=== PATIENT | male | born 1965 | race Caucasian/White ===

== ENCOUNTER 2024-01-21 13:06 | Emergency (ER) | payer BC, SELFPAY ==
[2024-01-21 13:26] VITALS: BP 164/107
[2024-01-21 13:38] LABS: % Basophils 0.6 % (0-2); % Eosinophils 1.6 % (0-6); % Immature Granulocytes 0.2 % (0-0.5); % Monocytes 5.3 % (1.7-9.3); % Neutrophils 69.3 % (42.2-75.2); Absolute Eosinophils 0.1 10^3/uL (0-0.7); Absolute Lymphocytes 1.2 10^3/uL (1.2-3.4); Absolute Monocytes 0.3 10^3/uL (0.1-0.6); Absolute Neutrophils 3.6 10^3/uL (1.4-6.5); Hematocrit 39.3 % (39.0-52.0); Hemoglobin 13.7 g/dL (13.0-18.0); Mean Corp Hgb Conc. 34.9 g/dL (33.0-37.0); Mean Corpuscular Volume 94.7 fL (80.0-94.0); Mean Platelet Volume 8.7 fL (7.4-10.4); Nucleated Red Blood Cells % 0 % (-); Platelet Count 173 10^3/uL (130-400); Red Blood Cell Count 4.15 10^6/uL (4.70-6.10); Red Cell Dist. Width 11.9 % (11.5-14.5); White Blood Cell Count 5.1 10^3/uL (4.8-10.8)
[2024-01-21 13:52] LABS: ALT (SGPT) 36 U/L (0-50); AST (SGOT) 28 U/L (17-59); Albumin 4.2 g/dl (3.5-5.0); Alkaline Phosphatase 83 U/L (38-126); Blood Urea Nitrogen 15 mg/dl (9-20); Carbon Dioxide 30 mmol/L (22-30); Chloride 103 mmol/L (98-107); Glucose 116 mg/dl (70-99); Potassium 4.1 mmol/L (3.5-5.1); Sodium 135 mmol/L (135-145); Total Bilirubin 0.5 mg/dl (0.2-1.3); Total Protein 6.9 g/dl (6.3-8.2); eGFR > 60.00
[2024-01-21 14:04] LABS: Troponin I < 0.012 ng/ml
[2024-01-21 15:12] VITALS: BP 163/104
--- NOTE | 2024-01-21 15:36 | ED.GENMED ---
History of Present Illness
General
Chief Complaint: Chest Pain
Source: patient
Exam Limitations: none
Time Seen by Provider: 01/21/24 15:13
Nursing documentation reviewed up to this point in time: agreed with
Travel History
Have you had any contact with someone who has COVID-19?: No
Do you have any symptoms of coronavirus? Fever > 100 degrees, chills, cough, shortness of breath, sore throat, loss of taste or smell, muscle aches, or headache?: No
History of Present Illness
History of Present Illness:
The patient is a 58-year-old man who reports intermittent left-sided chest pain for almost a week. Patient reports he has been under a lot of stress and when the stress intensifies, the chest pain gets worse. He reports it does not seem to be
related to breathing or exertion. He reports it is nearly gone at this time. The episode of chest pain started today at around 12:30 PM and has been constant until now. Patient reports the pain radiated towards the left shoulder which made him
nervous. He denies shortness of breath, nausea and sweating. He denies leg pain and leg swelling. He denies a history of PE and DVT.
Past History
Past History
ED Past Medical History: GERD and Psychiatric (Anxiety)
ED Past Surgical History: None
Social History
Tobacco: Non-smoker
Alcohol: Occasional
Drug: None
Personal:
Living: with family
Employment: Employed
Family History
Family History: Other
Review of Systems
Review of Systems
Allergies reviewed?: Yes
All Other Systems: ROS reviewed and negative except as documented in HPI and ROS
Constitutional: Reports no symptoms
EENT: Reports no symptoms
Respiratory: Reports no symptoms
Cardiac: Reports chest pain
ABD/GI: Reports no symptoms
: Reports no symptoms
Musculoskeletal: Reports no symptoms
Skin: Reports no symptoms
Neurological: Reports no symptoms
Endocrine: Reports no symptoms
Hematologic/Lymphatic: Reports no symptoms
Psychiatric: Reports no symptoms
Phy Exam
Physical Exam
Physical Exam:
Physical Exam
General: no apparent distress, not acutely ill. Well and comfortable appearing
Neck: supple. no meningeal signs. normal psoterior pharynx
Heart: s1/s2 regular rate and rhythm, no murmur. equal radial pulses.
Lungs: no acute respiratory distress. clear bilaterally. No reproducible chest pain when taking a deep breath
Abdomen: normal bowel sounds. not tender. no CVAT. No pulsatile mass
Neuro: alert and oriented. no focal neurological deficits
Skin: no rash
Psychiatric: well kept. interactive and cooperative
Extremities: no edema. no calf tenderness. negative homans. good distal pulses
Scores
Heart Score for Chest Pain Patients
STEMI patient?: No
History: Slightly or Non-Suspicious
ECG: Nonspecific Repolarization
Age: >45 - <65 years
Risk Factors: No Risk Factors
Troponin: </= Normal Limit
Heart Score for Chest Pain Patients: 2
Heart Score Risk: 2.5% MACE over next 6 weeks
Course
Orders/Labs/Results
Orders:
Orders
01/21/24 13:08
ECG [Electrocardiogram (*1)] Urgent
Reason for Study: Chest Pain
EKG- Treatment ONCE
01/21/24 13:31
Complete Blood Count/With Diff Urgent
Comprehensive Metabolic Panel Urgent
Troponin I Urgent
01/21/24 15:47
Troponin I Urgent
Abnormal Lab Results
01/21/24
13:31
RBC 4.15 L 10^6/uL
(4.70-6.10)
MCV 94.7 H fL
(80.0-94.0)
MCH 33.0 H pg
(27.0-31.0)
Glucose 116 H mg/dl
(70-99)
01/21/24 13:31
01/21/24 13:31
Vital Signs
Initial and Last Documented VS:
Initial Vital Signs
Temp Pulse Resp BP Pulse Ox
98.2 F 74 16 164/107 97
01/21/24 13:26 01/21/24 13:26 01/21/24 13:26 01/21/24 13:26 01/21/24 13:26
Last Documented Vital Signs
Temp Pulse Resp BP Pulse Ox
98.2 F 88 16 167/98 97
01/21/24 13:26 01/21/24 16:41 01/21/24 16:41 01/21/24 16:41 01/21/24 16:41
MDM/Problems Addressed
Differential Diagnosis Includes:
Acute coronary syndrome, PE, gastritis, anxiety
MDM/Problems Addressed:
Patient presents with acute chest pain
Chronic conditions affecting care:
Symptoms may be related to chronic GERD
Acute Exacerbation and/or Progression of Chronic Illness:
Patient is acutely hypertensive, however, he does appear anxious which may be causing his hypertension
Acute Exacerbation and/or Progression of Chronic Illness: HTN
*Pulse Oximetry
Patient hypoxic: no
*EKG
Interpreted by ED Provider?: Yes
Interpretation: abnormal
Comparison EKG: no comparison EKG present
Rate: normal
[place]: left axis deviation
Interval: normal interval
QRS Pattern: normal QRS
Ischemia: no ischemia
*Aerographer Interpretation
Rate: normal
Interpretation: normal
Rhythm: sinus
*Critical Care Note
Total Time (30-74mins, 75-104mins- exclusive of procedures): Not Applicable
Data Reviewed
Review of Other/Old Records Reveals: Testing (Cardiac stress echo done in 2013 is normal)
Source: patient
Update Note
Update Note:
Patient has been resting comfortably for hours. It is doubtful he is acute coronary syndrome given that his troponins are both negative and he looks well and comfortable. Clinically there is no sign of pneumonia or heart failure. Given he looks
so well and comfortable, is doubtful he has an aortic dissection. He has no pleuritic chest pain or shortness of breath to suggest PE
ED Attending Note
-
Portions of this chart may have been created with voice recognition software.� Occasional wrong word or��sound alike� substitutions may have occurred due to the inherent limitations of voice recognition software.
Discharge Plan
Departure
Patient Disposition: Home (Routine Discharge)
Date of Disposition: 01/21/24
Time of Disposition: 16:35
Patient with high blood pressure during this ER visit?: Yes
Condition: Good
Covid-19: Not Applicable
Discharge Problem:
Chest pain in adult
Instructions: Chest Pain PCP Follow Up
Prescriptions:
No Action
hydrocodone-acetaminophen 1 TABLET tablet
1 tab PO Q4HPRN PRN (Reason: Moderate to severe pain) Qty: 15 0RF
Referrals:
Ayesha Reed [employer] [Family Provider] -
Interventions
Interventions:
*Risk Screen - Suicide Last Done: 01/21/24 13:26
*General Assessment Last Done: 01/21/24 13:26
*Neglect/Abuse Screening Last Done: 01/21/24 13:26
ED- Fall Risk Assessment Last Done: 01/21/24 16:28
*ED COVID-19 Vaccine History Last Done: 01/21/24 15:15
*Nursing Disposition Last Done: 01/21/24 16:39
ED- Cardiac Assessment Last Done: 01/21/24 15:15
Discharge Date and Time
Discharge Date/Time: 01/21/24 16:41
Print Language: MALAYSIAN
[2024-01-21 16:25] LABS: Troponin I < 0.012 ng/ml
[2024-01-21 16:41] VITALS: BP 167/98
== END 2024-01-21 16:41 | disposition home or self-care (01) ==
LOC: EMR 13:06
PROVIDERS: Emergency Medicine; EMERGENCY PHYSICIAN Emergency Medicine; FAMILY PHYSICIAN Internal Medicine
DX: R07.89 Other chest pain (principal); K21.9 Gastro-esophageal reflux disease without esophagitis; F41.9 Anxiety disorder, unspecified; I10 Essential (primary) hypertension
CPT/HCPCS: 99283; 80053; 84484; 85025; 93005

== ENCOUNTER → 2024-05-08 16:09 | Outpatient (REF) | payer BC, SELFPAY | LOC: RAD 16:09 | PROVIDERS: ATTENDING PHYSICIAN Nurse Practitioner Adult Health; FAMILY PHYSICIAN Internal Medicine | DX: M79.601 Pain in right arm (principal); S49.91XA Unspecified injury of right shoulder and upper arm, initial encounter; R60.0 Localized edema | CPT/HCPCS: 73080; 73090; 73100 ==

== ENCOUNTER → 2024-11-20 13:04 | Outpatient (REF) | payer BC, SELFPAY | LOC: EMG 13:04 | PROVIDERS: ATTENDING PHYSICIAN Physician Assistant Surgical; FAMILY PHYSICIAN Internal Medicine | DX: M25.531 Pain in right wrist (principal); R20.2 Paresthesia of skin | CPT/HCPCS: 95886; 95909 ==

== ENCOUNTER → 2024-12-14 15:41 | Outpatient (REF) | payer BC, SELFPAY | LOC: RAD 15:41 | PROVIDERS: ATTENDING PHYSICIAN Internal Medicine | DX: Z01.89 Encounter for other specified special examinations (principal) | CPT/HCPCS: 70030 ==

== ENCOUNTER → 2024-12-15 06:36 | Outpatient (REF) | payer BC, SELFPAY | LOC: MRI 3T 06:36 | PROVIDERS: ATTENDING PHYSICIAN Physician Assistant Surgical; FAMILY PHYSICIAN Internal Medicine | DX: M25.531 Pain in right wrist (principal) | CPT/HCPCS: 73221 ==